=== PATIENT | male | born 1990 | race Caucasian/White ===

== ENCOUNTER 2017-05-07 00:29 | Emergency (ER) | payer OTHER ==
[~2017-05-07] VITALS: Ht 182.9 cm; Wt 77.1 kg
[2017-05-07] MEDS ORDERED: NOHOMEMEDICATIONS (00:47)
[2017-05-07 01:36] VITALS: BP 102/66
[2017-05-07] MEDS ORDERED: NORCO 5-325 TA1 EACH PO (02:58)
== END 2017-05-07 03:03 | disposition home or self-care (01) ==
LOC: ER 00:29
DX: S02.2XXA Fracture of nasal bones, initial encounter for closed fracture (principal); S01.81XA Laceration without foreign body of other part of head, initial encounter; M79.631 Pain in right forearm; V00.131A Fall from skateboard, initial encounter; Y93.51 Activity, roller skating (inline) and skateboarding; Y92.89 Other specified places as the place of occurrence of the external cause; Y99.8 Other external cause status